=== PATIENT | female | born 1980 ===

== ENCOUNTER 2024-01-27 08:35 | Outpatient (AMB) | payer OTHER, SELFPAY ==
--- NOTE | 2024-01-27 08:39 | MHC.OFFVIS ---
Vital Signs 01/27/24 08:40 Height 5 ft 2.75 in Weight 140 lb 10.479 oz BMI 25.1 BP 116/70 Blood Pressure Location Lt brachial Position Sitting Pulse 71 Pulse Source Pulse Oximeter Pulse Oximetry (%) 100 Oxygen Delivery Method Room Air Intake Visit Reasons: + HAYDEN Intake Note: New patient externally referred by Avelina Gonsales PCP. Presents today for + HAYDEN. She has had pain since August, she also states she has had pain in joints, mainly in bilateral joints in ankles, knees, and hands. Patient has tried generic voltaren for the pain with little relief. Allergies No Known Allergies Allergy (Verified 01/27/24 08:46) Medication List - Last Reconciled 01/27/24 by Dorinda Flores MD [id number] ala 50-200-25 mg (Biktarvy) 1 tab PO DAILY loratadine 10 mg PO DAILY HPI Comments Details: This is a 43-year-old female who presents for evaluation of a positive HAYDEN. Back in 07/2023 she developed an abrupt onset of a diffuse rash all over her body including her trunk and extremities. She also started having joint pains especially of her wrists, thumbs, knees and ankles. She would have intermittent swelling. Morning stiffness lasting a few hours. Was evaluated by her PCP. Labs showed a positive HAYDEN, rheumatoid factor as well as positive serologic tests for syphilis. Her was also tested for lupus and it was positive. She received prednisone taper as well as an intramuscular antibiotic injection. She stated that the rash stopped after 3 weeks. The prednisone helped with the joint pain. Since then she has been having intermittent episode of joint pain but not as severe. Currently she only has mild pain and stiffness of her hands that lasts 5 minutes in the morning. She denies any other symptoms such as fevers, weight loss, has history suggestive of Raynaud's. Denies any history of DVT/PE. She had 3 pregnancies, 2 children and 1 . [facility] Medical History Secondary syphilis GERD (gastroesophageal reflux disease) Anxiety HIV (human immunodeficiency virus) infection delivery delivered Surgical History H/O cervical biopsy H/O tubal ligation Family History Brother Lung cancer Social History Household Members: Family Alcohol intake: current Alcohol intake frequency: holidays/special occasions only Patient Tobacco Use Status: Never used Tobacco Current occupational status: employed Current occupation: main entree cook and cashier Female Reproductive History Menstrual Total pregnancies: 3 Full term: 2 Ab induced: 1 Review of Systems Const Denies fever(s) and Denies weight loss Resp Reports no additional complaints Musc Reports arthralgias, Reports joint swelling and Reports stiffness Skin/Breast Denies rash Physical Exam Vital Signs: Last Vital Signs Pulse 71 01/27/24 08:40 BP 116/70 01/27/24 08:40 Pulse Ox 100 01/27/24 08:40 Oxygen Delivery Method Room Air 01/27/24 08:40 BMI result Body Mass Index 25.1 Const General: cooperative, healthy appearing and comfortable Nutritional Appearance: average body habitus Orientation/consciousness: patient oriented x3 Limitations: no limitations HEENT Head: Yes normocephalic and Yes atraumatic Mouth: moist mucous membranes Resp Effort & Inspection: normal respiratory effort and able to speak in complete sentences Auscultation: clear to auscultation bilaterally Cardio Rate: regular rate Rhythm: regular rhythm Skin General skin exam: no rashes or lesions noted Neuro General: patient oriented x3 Extrem Other: Mild osteoarthritic changes of both hands with no active synovitis Normal nailfold capillaroscopy Results Reviewed Results Reviewed: Labs 2023? HAYDEN screen 1-160 nucleolar? RF 103. RF 73 in 2017 SSA/SSB/Moran/NANOTECHNOLOGIST/Leeann-1/CCP all negative? C3 normal? C4 normal? CRP elevated at 1.0 ESR nl Assessment & Plan Assessment & Plan (1) HAYDEN positive: Code(s): R76.8 - Other specified abnormal immunological findings in serum Category: Medical Plan: This is a 43-year-old female presents for evaluation of a positive HAYDEN and positive rheumatoid factor in the context of diffuse rash and multiple joint pain and swelling. Labs also showed positive serologies criteria for syphilis. Patient received intramuscular antibiotic as well as prednisone with resolution of her rash and significant improvement of her joint complaints. I will order comprehensive serology to screen for underlying autoimmune rheumatic disease Follow-up in about 6 weeks Plan I spent 48 minutes reviewing patient's chart, evaluating patient, ordering diagnostic workup, counseling patient and documenting in the chart Orders: Orders HAYDEN Reflex Titer and Pattern Today M32.9 - Systemic lupus erythematosus, unspecified Anti Extractable Nuclear Ag Today M32.9 - Systemic lupus erythematosus, unspecified DNA Double Stranded-Crithidia Today M32.9 - Systemic lupus erythematosus, unspecified Erythrocyte Sedimentation Rate Today M32.9 - Systemic lupus erythematosus, unspecified Protein Creatinine Ratio, Ur Today M32.9 - Systemic lupus erythematosus, unspecified Sjogren's Antibodies Today M32.9 - Systemic lupus erythematosus, unspecified Comprehensive Met. Panel Today M32.9 - Systemic lupus erythematosus, unspecified Angiotensin Converting Enzyme Today M32.9 - Systemic lupus erythematosus, unspecified ANCA Vasculitides Today I77.6 - Arteritis, unspecified T Spot TB Today Z11.7 - Encounter for testing for latent tuberculosis infection Immunofixation Pnl, Serum Today M32.9 - Systemic lupus erythematosus, unspecified Hepatitis B Viral DNA Qn Today B19.10 - Unspecified viral hepatitis B without hepatic coma Anti DNA DS Antibody Today M32.9 - Systemic lupus erythematosus, unspecified Complement C3 Today M32.9 - Systemic lupus erythematosus, unspecified Complement C4 Today M32.9 - Systemic lupus erythematosus, unspecified C Reactive Protein Today M32.9 - Systemic lupus erythematosus, unspecified UA w Microscopic Today M32.9 - Systemic lupus erythematosus, unspecified Complete Blood Count Auto Diff Today M32.9 - Systemic lupus erythematosus, unspecified Creatine Kinase Total Today M32.9 - Systemic lupus erythematosus, unspecified Hepatitis A,B,C Profile Today Z11.59 - Encounter for screening for other viral diseases Protein Electrophoresis, Serum Today M32.9 - Systemic lupus erythematosus, unspecified Scleroderma 12 Panel Today M34.9 - Systemic sclerosis, unspecified MSA Panel Extended Today M60.9 - Myositis, unspecified Beta-2 Glycoprotein Antibody Today D68.61 - Antiphospholipid syndrome Cardiolipin Antibodies Today D68.61 - Antiphospholipid syndrome Lupus Anticoagulant Panel Today D68.61 - Antiphospholipid syndrome Hepatitis C Viral Load Today B19.20 - Unspecified viral hepatitis C without hepatic coma Coding Level of Care Code New Pt Level 4 (87504) Diagnoses HAYDEN positive R76.8
[2024-01-27 08:40] VITALS: BP 116/70; PULSE 71; O2SAT 100; BMI 25.1
== END 2024-01-27 09:18 | disposition home or self-care (01) ==
PROVIDERS: PCP Nurse Practitioner Family; Visit Provider Student in an Organized Health Care Education/Training Program
DX: R76.8 Other specified abnormal immunological findings in serum (principal)
CPT/HCPCS: 99204

== ENCOUNTER → 2024-01-27 08:35 | Outpatient (BNVA) | payer OTHER, SELFPAY | PROVIDERS: PCP Nurse Practitioner Family; Visit Provider Student in an Organized Health Care Education/Training Program | DX: R76.8 Other specified abnormal immunological findings in serum (principal) | CPT/HCPCS: 99202 ==

== ENCOUNTER 2024-01-27 09:25 | Outpatient (REF) | payer OTHER, SELFPAY ==
[2024-01-27 10:29] LABS: Basophils Percent Auto 0.7 % (0-2); Eosinophils Absolute Auto 0.1 X10*3/uL (0.0-0.4); Eosinophils Percent Auto 1.6 % (0-4); Imm Gran Abs Auto 0.01 X10*3/uL (0.00-0.03); Imm Gran Pct Auto 0.2 % (0.0-0.4); Lymphocytes Absolute Auto 1.2 X10*3/uL (1.2-4.9); Lymphocytes Percent Auto 27.5 % (20-40); MANUAL DIFF FLAG NO; Mean Corpuscular HGB Conc 31.6 g/dl (31.0-35.0); Mean Corpuscular Hemoglobin 24.3 pg (27.0-33.0); Mean Corpuscular Volume 76.9 fL (80.0-98.0); Mean Platelet Volume 9.3 fL (9.4-12.3); Monocytes Absolute Auto 0.4 X10*3/uL (0.1-1.2); Monocytes Percent Auto 8.7 % (2-11); Neutrophils Absolute Auto 2.7 x10*3/uL (2.0-8.3); Neutrophils Percent Auto 61.3 % (45-73); Platelet Count 365 X10*3/uL (160-400); Red Blood Count 4.94 X10*6/uL (4.20-5.50); Red Cell Distribution Width 16.7 % (11.0-16.0); White Blood Count 4.4 X10*3/uL (4.8-10.8)
[2024-01-27 11:05] LABS: Erythrocyte Sedimentation Rate 5 MM/HR (0-20)
[2024-01-27 11:06] LABS: Alanine Aminotransferase 15 U/L (0-31); Albumin Level 4.2 g/dL (3.5-5.0); Alkaline Phosphatase 52 U/L (39-117); Anion Gap 11 (12-20); Aspartate Amino Transferase 17 U/L (5-31); Bilirubin Total 0.4 mg/dL (0.0-1.0); Blood Urea Nitrogen 10 mg/dL (9-16); C Reactive Protein 0.24 mg/dL (< or = 0.50); Calcium 9.1 mg/dL (8.4-10.2); Carbon Dioxide 26 mmol/L (22-29); Chloride 106 mmol/L (96-108); Estimated Glomerular Filt Rate > 60; Glucose Random 82 mg/dL (60-115); Potassium 4.3 mmol/L (3.3-5.1); Sodium 139 mmol/L (135-145); Total Protein 7.4 g/dL (6.5-8.0)
[2024-01-27 11:18] LABS: HBS Num1 2.46 mIU/mL (0-7.99); HBc Num1 0.09 S/CO (0.00-0.79); Hepatitis A Antibody IgM 0.15 Index (0-0.79); Hepatitis B Core Antibody Nonreactive (Nonreactive); Hepatitis B Surface Antigen Negative (Negative); ~HepC Num1 0.11 S/CO (0.00-0.79); ~Hepatitis A Antibody IgM Nonreactive (Nonreactive); ~Hepatitis B Surface Antibody NONREACTIVE (Nonreactive); ~Hepatitis C Antibody Nonreactive (Nonreactive)
[2024-01-27 11:36] LABS: Appearance Urine Clear; Color Urine Yellow; Glucose Urine UA Negative (Negative); Leukocyte Esterase Urine Negative (Negative); Nitrite Urine Negative (Negative); PH 5.5 (5.0-9.0); Urine Blood Negative (Negative); Urine Ketones Negative (Negative); Urine Protein Negative (Neg-Trace)
[2024-01-27 11:40] LABS: Bacteria Urine None Seen (None Seen); Hyaline Casts Urine 0-2 /LPF (0-2); RBC Urine 0-2 /HPF (0-2); WBC Urine 0-5 /HPF (0-5)
[2024-01-27 12:26] LABS: Creatinine Urine 64.24 mg/dL; Total Protein Urine Random < 7 mg/dL (<12)
[2024-01-28 21:18] LABS: Anti DNA DS Antibody <1 IU/mL; Antibody to SS-A Antigen <1.0 NEG AI (<1.0 NEG); Antibody to SS-B Antigen <1.0 NEG AI (<1.0 NEG); Cardiolipin IgG Ab <2.0 GPL-U/mL; Cardiolipin IgM Ab <2.0 MPL-U/mL; Myeloperoxidase Antibody <1.0 AI; Proteinase 3 PR3 Antibodies <1.0 AI; SM/Ribonucleoprotein Ab <1.0 NEG AI (<1.0 NEG); Smith Protein <1.0 NEG AI (<1.0 NEG)
[2024-01-29 10:49] LABS: Prot Elec - Albumin 4.4 g/dL (3.8-4.8); Prot Elec - Alpha1 0.3 g/dL (0.2-0.3); Prot Elec - Alpha2 0.8 g/dL (0.5-0.9); Prot Elec - Beta 1 0.6 g/dL (0.4-0.6); Prot Elec - Beta 2 0.4 g/dL (0.2-0.5); Prot Elec - Gamma 1.3 g/dL (0.8-1.7); Prot Elec - Total Protein 7.8 g/dL (6.1-8.1)
[2024-01-29 14:43] LABS: Complement C3 118 mg/dL (83-193)
[2024-01-29 21:33] LABS: IgA 296 mg/dL (47-310); IgG 1494 mg/dL (600-1640); IgM 98 mg/dL (50-300)
[2024-01-30 07:24] LABS: TS Negative Control Passed; TS Panel A 1; TS Panel B 0; TS Positive Control Passed; TSpotTB Negative (Negative)
[2024-01-30 13:43] LABS: HCV Log PCR <1.18 NOT DETECTED Log IU/mL (NOT DETECTED); HepC Viral Load <15 NOT DETECTED IU/mL (NOT DETECTED)
[2024-01-30 14:03] LABS: Hepatitis B Viral DNA Qn - cp NOT DETECTED Log IU/mL (NOT DETECTED); Hepatitis B Viral DNA Qn-IU/mL NOT DETECTED (NOT DETECTED)
[2024-01-31 09:18] LABS: Angiotensin Converting Enzyme 24.9 U/L (9-67)
[2024-01-31 13:47] LABS: Anti Nuclear Antibody Screen NEGATIVE (NEGATIVE)
[2024-02-02 14:49] LABS: DNAds, Crithidia Antibody Negative (Negative)
[2024-02-02 21:12] LABS: PTT (LAC) Screen 38 sec (<=40)
[2024-02-04 22:13] LABS: Beta-2 Glycoprotein IgA <2.0 U/mL (<20.0); Beta-2 Glycoprotein IgG <2.0 U/mL (<20.0); Beta-2 Glycoprotein IgM <2.0 U/mL (<20.0)
[2024-02-05 23:33] LABS: Centromere Protein A Ab <11 SI (<11); Centromere Protein B Ab <11 SI (<11); Fibrillarin Ab <11 SI (<11); PM SCL 100 Ab <11 SI (<11); PM SCL 75 Ab <11 SI (<11); RNA Polymerase III RP11 Ab <11 SI (<11); RNA Polymerase III RP155 Ab <11 SI (<11); SCL-70 Extractable Nuclear Ab <11 SI (<11); Th-To Ab <11 SI (<11); U1 SNRNP RNP 70KD <11 SI (<11); U1 SNRNP RNP A <11 SI (<11); U1 SNRNP RNP C <11 SI (<11)
[2024-02-07 17:39] LABS: Cytosolic 5'nuc 1A Ab IgG <5 Units; Ej Ab <11 SI (<11); HMGCR Ab IgG <2 CU (<20); Jo-1 Ab <11 SI (<11); MDA5 Ab <11 SI (<11); Mi-2 alpha Ab <11 SI (<11); Mi-2 beta Ab <11 SI (<11); NXP-2 (MJ) Ab <11 SI (<11); Oj Ab <11 SI (<11); Pl-12 Ab <11 SI (<11); Pl-7 Ab <11 SI (<11); SRP Ab <11 SI (<11); TIF1 gamma Ab <11 SI (<11)
== END 2024-01-27 09:26 | disposition home or self-care (01) ==
LOC: HO.LAB 09:25
PROVIDERS: Visit Provider Student in an Organized Health Care Education/Training Program
DX: M32.9 Systemic lupus erythematosus, unspecified (principal); M34.9 Systemic sclerosis, unspecified; D68.61 Antiphospholipid syndrome; B19.20 Unspecified viral hepatitis C without hepatic coma; B19.10 Unspecified viral hepatitis B without hepatic coma; I77.6 Arteritis, unspecified; Z11.7 Encounter for testing for latent tuberculosis infection; Z11.59 Encounter for screening for other viral diseases
CPT/HCPCS: 36415; 80053; 81001; 82164; 82550; 82570; 82784; 83516; 83520; 84156; 84165; 84182; 85025; 85597; 85598; 85613; 85652; 85730; 86021; 86038; 86140; 86146; 86147; 86160; 86225; 86235; 86255; 86334; 86481; 86704; 86706; 86709; 86803; 87340; 87517; 87522

== ENCOUNTER 2024-03-15 11:38 | Outpatient (AMB) | payer OTHER, SELFPAY ==
--- NOTE | 2024-03-15 11:41 | MHC.OFFVIS ---
Vital Signs 03/15/24 11:44 Height 5 ft 2.75 in Weight 140 lb 6.951 oz BMI 25.1 BP 115/62 Blood Pressure Location Rt brachial Position Sitting Pulse 94 Pulse Source Pulse Oximeter Pulse Oximetry (%) 99 Oxygen Delivery Method Room Air Intake Visit Reasons: HAYDEN +ve/lm Intake Note: Patient presents for HAYDEN +ve. Allergies No Known Allergies Allergy (Verified 03/15/24 11:44) Medication List - Last Reconciled 03/15/24 by Dorinda Flores MD [id number] ala 50-200-25 mg (Biktarvy) 1 tab PO DAILY loratadine 10 mg PO DAILY HPI Comments Details: Patient returns for follow-up after completion of her diagnostic workup. She feels well today. No complaints. Rash has not recurred. Denies any joint pains or swelling. Initial history: This is a 43-year-old female who presents for evaluation of a positive HAYDEN. Back in 07/2023 she developed an abrupt onset of a diffuse rash all over her body including her trunk and extremities. She also started having joint pains especially of her wrists, thumbs, knees and ankles. She would have intermittent swelling. Morning stiffness lasting a few hours. Was evaluated by her PCP. Labs showed a positive HAYDEN, rheumatoid factor as well as positive serologic tests for syphilis. Her was also tested for lupus and it was positive. She received prednisone taper as well as an intramuscular antibiotic injection. She stated that the rash stopped after 3 weeks. The prednisone helped with the joint pain. Since then she has been having intermittent episode of joint pain but not as severe. Currently she only has mild pain and stiffness of her hands that lasts 5 minutes in the morning. She denies any other symptoms such as fevers, weight loss, has history suggestive of Raynaud's. Denies any history of DVT/PE. She had 3 pregnancies, 2 children and 1 . [facility] Medical History Secondary syphilis GERD (gastroesophageal reflux disease) Anxiety HIV (human immunodeficiency virus) infection delivery delivered Surgical History H/O cervical biopsy H/O tubal ligation Family History Brother Lung cancer Social History Household Members: Family Alcohol intake: current Alcohol intake frequency: holidays/special occasions only Patient Tobacco Use Status: Never used Tobacco Current occupational status: employed Current occupation: computer drafter Female Reproductive History Menstrual Total pregnancies: 3 Full term: 2 Ab induced: 1 Review of Systems Const Denies fever(s) and Denies weight loss Resp Reports no additional complaints Musc Denies arthralgias, Denies joint swelling and Denies stiffness Skin/Breast Denies rash Physical Exam Vital Signs: Last Vital Signs Pulse 94 03/15/24 11:44 BP 115/62 03/15/24 11:44 Pulse Ox 99 03/15/24 11:44 Oxygen Delivery Method Room Air 03/15/24 11:44 BMI result Body Mass Index 25.1 Const General: cooperative, healthy appearing and comfortable Nutritional Appearance: average body habitus Orientation/consciousness: patient oriented x3 Limitations: no limitations HEENT Head: Yes normocephalic and Yes atraumatic Resp Effort & Inspection: normal respiratory effort and able to speak in complete sentences Skin General skin exam: no rashes or lesions noted Neuro General: patient oriented x3 Extrem Other: Mild osteoarthritic changes of both hands with no active synovitis Normal nailfold capillaroscopy Results Reviewed Results Reviewed: Labs 2023? HAYDEN screen 1-160 nucleolar? RF 103. RF 73 in 2017 SSA/SSB/Moran/[employer]ED WORKER/Leeann-1/CCP all negative? C3 normal? C4 normal? CRP elevated at 1.0 ESR nl Assessment & Plan Assessment & Plan (1) HAYDEN positive: Code(s): R76.8 - Other specified abnormal immunological findings in serum Category: Medical Plan: This is a 43-year-old female presents for evaluation of a positive HAYDEN and positive rheumatoid factor in the context of diffuse rash and multiple joint pain and swelling. Labs also showed positive serologies criteria for syphilis. Patient received intramuscular antibiotic as well as prednisone with resolution of her rash and significant improvement of her joint complaints. This was back in 07/2023 I ordered comprehensive serology to screen for underlying autoimmune rheumatic disease. Comprehensive serology is negative with normal inflammatory markers. Her positive HAYDEN and rheumatoid factor may be related to her HIV status and/or syphilis infection. Discussed symptoms and signs that are suggestive of an autoimmune rheumatic disease. Advised patient to return as needed Follow-up with PCP Plan I spent 15 minutes reviewing patient's chart, evaluating patient, counseling patient and documenting in the chart Coding Level of Care Code Est Pt Level 3 (94206) Diagnoses HAYDEN positive R76.8
[2024-03-15 11:44] VITALS: BP 115/62; PULSE 94; O2SAT 99; BMI 25.1
== END 2024-03-15 11:50 | disposition home or self-care (01) ==
LOC: HO.RHE 11:38
PROVIDERS: PCP Nurse Practitioner Family; Visit Provider Student in an Organized Health Care Education/Training Program
DX: R76.8 Other specified abnormal immunological findings in serum (principal)
CPT/HCPCS: 99213

== ENCOUNTER → 2024-03-15 11:38 | Outpatient (BNVA) | payer OTHER, SELFPAY | PROVIDERS: PCP Nurse Practitioner Family; Visit Provider Student in an Organized Health Care Education/Training Program | DX: R76.8 Other specified abnormal immunological findings in serum (principal) | CPT/HCPCS: 99212 ==